=== PATIENT | male | born 1960 | race African-American/Black ===

== ENCOUNTER 2018-10-20 21:18 | Inpatient (IN) | payer MEDICAID, SELFPAY ==
[~2018-10-20] VITALS: Ht 172.7 cm; Wt 123.8 kg
[2018-10-20] MEDS ORDERED: LISINOPRIL20 MG ORAL (21:22)
--- NOTE | 2018-10-20 21:22 | Emergency Room Report ---
History of Present Illness General Chief Complaint: Chest Pain Source: Patient Present Illness HPI Patient is a 58-year-old male brought in by EMS after increased chest discomfort. Patient had reportedly had similar episodes in the past. Patient reportedly had been off of his hypertension medications. Reports of increased right-sided chest pain. Pain is worse with movements.Patient was given aspirin by EMS.Patient reports having symptoms for 4 Days. He denies taking his blood pressure medications. Patient was noted to be markedly hypertensive by EMS. He was not given nitroglycerin due to reported allergy.Patient denies any change in his leg swelling.Patient reports having prior history of cardiac disease and has had prior stent placement. He denies taking anticoagulants other than aspirin. Allergies: Coded Allergies: NITROGLYCERIN (Verified Allergy, Unknown, 10/20/18) Patient History Past Medical History: see triage record Past Surgical History: PTCA Reviewed Nursing Documentation: PMH: Agreed; PSxH: Agreed Nursing Documentation-PMH Hx Cardiac Problems: Yes - STENT Hx Hypertension: Yes Hx Cerebrovascular Accident: Yes - STROKE Review of Systems All Other Systems: negative except mentioned in HPI Physical Exam Vital Signs Date Time Temp Pulse Resp B/P (MAP) Pulse Ox O2 Delivery O2 Flow Rate FiO2 10/20/18 21:13 98.1 81 16 261/153 98 Sp02 EP Interpretation: reviewed, normal General Appearance: normal inspection, well appearing, no apparent distress, alert, obese Head: atraumatic ENT: normal ENT inspection, hearing grossly normal, normal voice Neck: normal inspection, full range of motion, supple, no bony tend Respiratory: normal inspection, lungs clear, normal breath sounds, no respiratory distress, no retraction, no wheezing Cardiovascular #1: regular rate, rhythm, edema Gastrointestinal: normal inspection, normal bowel sounds, non tender, soft, no guarding, no hernia Genitourinary: no CVA tenderness Musculoskeletal: normal inspection, back normal, normal range of motion Neurologic: normal inspection, alert, responsive, speech normal Psychiatric: normal inspection, judgement/insight normal, mood/affect normal Skin: normal inspection, normal color, no rash Medical Decision Making Diagnostic Impression: Primary Impression: Chest pain Additional Impression: Uncontrolled hypertension ER Course Patient presented for chest pain. Differential diagnosis included but was not limited to acute coronary syndrome, pulmonary embolism, pneumonia, aortic dissection, shingles, pneumothorax, aortic dissection, esophageal rupture, pericarditis. Because of complexity of patient's case laboratory testing and imaging studies were ordered.Patient was noted to be markedly hypertensive. Patient was noted to have some difficulty breathing when given nitro in the past. Patient was given IV hydralazine as well as clonidine p.o.patient was noted to have some bradycardia. Per patient's report he was noted to have bradycardia since prior cardiac surgery. Patient was noted to have significant past medical history for cardiac stent placement. Patient was discussed with [facility] however patient was noted to be bradycardic at this time and I do not feel the patient is stable for transfer. Patient was noted to be pain- free at the time. Dr. Rogel was contacted for inpatient management due to need for inpatient monitoring and treatment due to panel physician. Labs Test 10/20/18 21:30 White Blood Count 8.2 K/UL (4.8-10.8) Red Blood Count 5.00 M/UL (4.70-6.10) Hemoglobin 15.7 G/DL (14.2-18.0) Hematocrit 47.7 % (42.0-52.0) Mean Corpuscular Volume 95 FL (80-99) Mean Corpuscular Hemoglobin 31.5 PG (27.0-31.0) Mean Corpuscular Hemoglobin Concent 33.0 G/DL (32.0-36.0) Red Cell Distribution Width 13.6 % (11.6-14.8) Platelet Count 228 K/UL (150-450) Mean Platelet Volume 8.7 FL (6.5-10.1) Neutrophils (%) (Auto) 51.0 % (45.0-75.0) Lymphocytes (%) (Auto) 38.9 % (20.0-45.0) Monocytes (%) (Auto) 8.3 % (1.0-10.0) Eosinophils (%) (Auto) 0.4 % (0.0-3.0) Basophils (%) (Auto) 1.4 % (0.0-2.0) Prothrombin Time 12.1 SEC (9.30-11.50) Prothromb Time International Ratio 1.2 (0.9-1.1) Activated Partial Thromboplast Time 28 SEC (23-33) D-Dimer 0.31 mg/L FEU (0.00-0.49) Troponin I 0.045 ng/mL (0.000-0.056) Urine Opiates Screen Negative (NEGATIVE) Urine Barbiturates Screen Negative (NEGATIVE) Phencyclidine (PCP) Screen Negative (NEGATIVE) Urine Amphetamines Screen Negative (NEGATIVE) Urine Benzodiazepines Screen Negative (NEGATIVE) Urine Cocaine Screen Negative (NEGATIVE) Urine Marijuana (THC) Screen Positive (NEGATIVE) EKG Diagnostic Results Rate: normal Rhythm: NSR ST Segments: other - Right bundle branch block. QTc was normal. Left anterior fascicular block Last Vital Signs Date Time Temp Pulse Resp B/P (MAP) Pulse Ox O2 Delivery O2 Flow Rate FiO2 10/20/18 21:13 98.1 81 16 261/153 98 Status: unchanged Disposition: ADMITTED INPATIENT Condition: Serious Tejas Kee MD Oct 20, 2018 21:22
[2018-10-20 21:27] VITALS: BP 143/81
[2018-10-20] MEDS ORDERED: cloNIDine 0.2mg Tab ORAL ONE (21:30)
[2018-10-20] MEDS ORDERED: Morphine Sulfate 2mg/ml Inj IVP ONE (22:30)
[2018-10-20 22:43] LABS: BASOPHILS % (AUTO) 1.4 % (0.0-2.0); EOSINOPHILS % (AUTO) 0.4 % (0.0-3.0); HEMATOCRIT 47.7 % (42.0-52.0); HEMOGLOBIN 15.7 G/DL (14.2-18.0); LYMPHOCYTES % (AUTO) 38.9 % (20.0-45.0); MEAN CORPUSCULAR VOLUME 95 FL (80-99); MONOCYTES % (AUTO) 8.3 % (1.0-10.0); PLATELET COUNT 228 K/UL (150-450); RED CELL DISTRIBUTION WIDTH 13.6 % (11.6-14.8); WHITE BLOOD COUNT 8.2 K/UL (4.8-10.8)
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
[2018-10-20 22:47] LABS: INR 1.2 (0.9-1.1)
[2018-10-20] MEDS ORDERED: Atropine Sulfate 0.4mg/ml inj IVP ONE (23:15)
--- NOTE | 2018-10-20 23:21 | NUR ---
ED Nurse Note: Morphine not administered due to patient's heart rate being too low, Dr. Kee aware
--- NOTE | 2018-10-21 02:10 | NUR ---
ED Nurse Note: CT SENT DOWN FOR CT.
[2018-10-21 03:10] VITALS: BP 129/79
--- NOTE | 2018-10-21 03:10 | NUR ---
NURSE NOTES: Received pt. from Sophia RN- pt. bought up from ER, pt. is alert and oriented x's 4- able to make needs known, no signs or symptoms of acute cardia or respiratory distress noted, Cardiac monitoring placed, Vital signs taken, full body assessment done- skin intact, pt. teaching done and pt. oriented to room, bed alarm on side rails up x's3 and safety brakes engaged, call light within easy reach, urinal at bedside and within easy reach, pt. appear to be sating well on room air at 97%- no respiratory distress noted, left hand 20G- IV intact and patent, comfort measures provided, safety measures continued, will continue with plan of care.
--- NOTE | 2018-10-21 03:10 | NUR ---
TRANSFER TO FLOOR: Patient transferred to [facility]/ 236 as ordered . Report given to Moises/HAVEN. Belongings sent with Pt and rechecked with RN.
[2018-10-21 03:12] LABS: ALANINE AMINOTRANSFERASE 26 U/L (12-78); ALBUMIN 3.2 G/DL (3.4-5.0); ALBUMIN/GLOBULIN RATIO 0.8 (1.0-2.7); ALKALINE PHOSPHATASE 65 U/L (46-116); ANION GAP 7 mmol/L (5-15); ASPARTATE AMINO TRANSFERASE 38 U/L (15-37); BILIRUBIN,TOTAL 0.5 MG/DL (0.2-1.0); BLOOD UREA NITROGEN 16 mg/dL (7-18); CALCIUM 9.3 MG/DL (8.5-10.1); CARBON DIOXIDE 25 MMOL/L (21-32); CHLORIDE 107 MMOL/L (98-107); CKMB 2.2 NG/ML (0.0-3.6); CREATINE KINASE 176 U/L (26-308); CREATININE 0.9 MG/DL (0.55-1.30); SODIUM 138 MMOL/L (136-145)
[2018-10-21 04:00] VITALS: BP 129/79
[2018-10-21] MEDS ORDERED: Morphine Sulfate 2mg/ml Inj IVP SCH (04:00)
--- NOTE | 2018-10-21 06:24 | NUR ---
NURSE NOTES: left msg for DR. Rogel, regarding bridge orders received by him from ER and calling to see if any further orders- waiting for call back from doctor.
--- NOTE | 2018-10-21 07:06 | NUR ---
HAND-OFF: Report given to Marino Dodd, pt. remains stable and no signs of distress noted. Aware to follow up on orders. Addendum: 10/21/18 at 0724 by IDALMIS WHITE RN RN correction to msg above report given to Olivia DODD not Marino DODD.
[2018-10-21] MEDS ORDERED: Morphine Sulfate 4mg/ml Inj (IV/IM USE ONLY) IVP PRN (07:15)
--- NOTE | 2018-10-21 07:19 | NUR ---
NURSE NOTES: orders called in by DR. Rogel- CBC, CMP for 10/23, hGA1C, lipid panel and TSH for am now, 2D echo for chest pain now, Prevacid 30mg QDay oral, Heparin 5000 Sub Q BID, Morphine and Zofran as ordered before but to order Q6hrs prn as indicated- orders carried out- and read back to doctor.
--- NOTE | 2018-10-21 07:20 | NUR ---
NURSE NOTES: RECEIVED PATIENT FROM Lucy WHITE RN. PATIENT IS AWAKE, ALERT AND ORIENTED. ABLE TO MAKE NEEDS KNOWN. 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 ON ROOM AIR. NO CARDIO OR RESPI DISTRESS OF THE MOMENT. ABLE TO USE URINAL. IV ON L HAND G20. CALL LIGHT WITHIN REACH. BED AT LOWEST POSITION. SIDE RAILS UP. WILL CONTINUE TO MONITOR.
[2018-10-21 08:00] VITALS: BP 128/63
[2018-10-21 08:13] LABS: ANION GAP 7 mmol/L (5-15); BLOOD UREA NITROGEN 15 mg/dL (7-18); CALCIUM 9.5 MG/DL (8.5-10.1); CARBON DIOXIDE 26 MMOL/L (21-32); CHLORIDE 108 MMOL/L (98-107); CREATININE 0.9 MG/DL (0.55-1.30); SODIUM 141 MMOL/L (136-145)
[2018-10-21 08:52] LABS: CHOLESTEROL 238 MG/DL (< 200); HDL CHOLESTEROL 55 MG/DL (40-60); TRIGLYCERIDES 172 MG/DL (30-150)
[2018-10-21] MEDS: Heparin 5000 units/ml inj SUBQ SCH ×2 (09:29→22:14)
--- NOTE | 2018-10-21 09:29 | NUR ---
*-* INSURANCE CLINICALS HAVE BEEN FAXED TO: [employer] P:[phone] F:[phone]
--- NOTE | 2018-10-21 10:00 | NUR ---
NURSE NOTES: INFORMED DR WHITNEY RE HR OF PATIENT AND CONSULTED DR MICHELLE. NO NEW ORDER. PATIENT IS ASYMPTOMATIC. VSS. NO SIGNS OF DISTRESS. WILL CONTINUE TO MONITOR.
--- NOTE | 2018-10-21 11:40 | NUR ---
NURSE NOTES: WHEELED PATIENT TO GI LAB. NO SIGNS OF DISTRESS. WILL CONTINUE OT MONITOR. Addendum: 10/21/18 at 1234 by URIEL VALADEZ RN NURSE NOTES: WRONG ENTRY
--- NOTE | 2018-10-21 11:49 | Diagnostic Imaging Report ---
Indication: Chest pain Comparison: None A single view chest radiograph was obtained. Findings: Cardiomediastinal appearance is prominent but within normal limits for age and especially accounting for low lung volumes. The lungs are clear. Pulmonary vascularity is appropriate. The diaphragmatic contour is smooth and costophrenic angles are sharp. No pleural effusions are identified. The bones are unremarkable. Impression: No acute findings
--- NOTE | 2018-10-21 13:50 | History & Physical ---
History and Physical History & Physicial seen and examined. Full Dictation completed Angelique Rogel MD Oct 21, 2018 13:50
--- NOTE | 2018-10-21 13:51 | General Progress Note ---
Assessment/Plan Assessment/Plan seen and examined. Plan: Hypertensive Emergency Pending assessment by Cardiology and completion of Echo Subjective Allergies: Coded Allergies: NITROGLYCERIN (Verified Allergy, Unknown, 10/20/18) Objective Last 24 Hour Vital Signs Date Time Temp Pulse Resp B/P (MAP) Pulse Ox O2 Delivery O2 Flow Rate FiO2 10/21/18 12:00 Room Air 10/21/18 11:49 54 10/21/18 10:03 36 10/21/18 08:00 55 10/21/18 08:00 97.7 46 20 128/63 (84) 96 10/21/18 08:00 Room Air 10/21/18 04:00 Room Air 10/21/18 04:00 45 10/21/18 04:00 97.3 46 20 129/79 (96) 98 10/21/18 03:10 97.3 48 20 126/75 98 Room Air 10/21/18 03:10 Room Air 10/21/18 03:10 97.3 46 20 129/79 (96) 98 10/20/18 21:37 227/121 10/20/18 21:36 227/121 10/20/18 21:27 98.1 74 19 143/81 98 Room Air 10/20/18 21:27 71 19 Room Air 10/20/18 21:13 98.1 81 16 261/153 98 Intake and Output 10/20/18 10/21/18 18:59 06:59 Intake Total 130 ml Balance 130 ml Intake Oral 130 ml # Voids 1 Laboratory Tests 10/20/18 21:30: White Blood Count 8.2, Red Blood Count 5.00, Hemoglobin 15.7, Hematocrit 47.7, Mean Corpuscular Volume 95, Mean Corpuscular Hemoglobin 31.5H, Mean Corpuscular Hemoglobin Concent 33.0, Red Cell Distribution Width 13.6, Platelet Count 228, Mean Platelet Volume 8.7, Neutrophils (%) (Auto) 51.0, Lymphocytes (%) (Auto) 38.9, Monocytes (%) (Auto) 8.3, Eosinophils (%) (Auto) 0.4, Basophils (%) (Auto ) 1.4, Prothrombin Time 12.1H, Prothromb Time International Ratio 1.2H, Activated Partial Thromboplast Time 28, D-Dimer 0.31, Troponin I 0.045, Urine Opiates Screen Negative, Urine Barbiturates Screen Negative, Phencyclidine (PCP ) Screen Negative, Urine Amphetamines Screen Negative, Urine Benzodiazepines Screen Negative, Urine Cocaine Screen Negative, Urine Marijuana (THC) Screen PositiveH 10/21/18 02:37: Sodium Level 138, Potassium Level 6.0*H, Chloride Level 107, Carbon Dioxide Level 25, Anion Gap 7, Blood Urea Nitrogen 16, Creatinine 0.9, Estimat Glomerular Filtration Rate > 60, Glucose Level 95, Calcium Level 9.3, Total Bilirubin 0.5, Aspartate Amino Transf (AST/SGOT) 38H, Alanine Aminotransferase ( ALT/SGPT) 26, Alkaline Phosphatase 65, Total Creatine Kinase 176, Creatine Kinase MB 2.2, Creatine Kinase MB Relative Index 1.2, Total Protein 7.0, Albumin 3.2L, Globulin 3.8, Albumin/Globulin Ratio 0.8L 10/21/18 07:47: Sodium Level 141, Potassium Level 4.0, Chloride Level 108H, Carbon Dioxide Level 26, Anion Gap 7, Blood Urea Nitrogen 15, Creatinine 0.9, Estimat Glomerular Filtration Rate > 60, Glucose Level 128H, Calcium Level 9.5, Hemoglobin A1c 6.0, Triglycerides Level 172H, Cholesterol Level 238H, LDL Cholesterol 156H, HDL Cholesterol 55, Cholesterol/HDL Ratio 4.3, Thyroid Stimulating Hormone (TSH) 3.372 Height (Feet): 5 Height (Inches): 8.00 Weight (Pounds): 273 Angelique Rogel MD Oct 21, 2018 13:51
--- NOTE | 2018-10-21 17:33 | NUR ---
CASE MANAGEMENT: REVIEW 58/M BIBA FROM HOME CC: CHEST PAIN SI: ACS T 97.3 HR 46 RR 20 BP 261/153 SAT 98% ROOM AIR K 6.0 IS: HYDRALAZINE IV X1 CLONIDINE PO X1 MORPHINE IV X1 ATROPINE IV X1 INTERQUAL CRITERIA MET: PATIENT ADMITTED TO STEP DOWN UNIT 10/21/2018 DCP: PATIENT IS FROM HOME
--- NOTE | 2018-10-21 18:16 | NUR ---
NURSE NOTES: PATIENT KEPT CLEAN AND DRY. NO SIGNS OF DISTRESS. WILL CONTINUE TO MONITOR.
--- NOTE | 2018-10-21 19:37 | NUR ---
HAND-OFF: Report given to Rabia Hendricks RN.
--- NOTE | 2018-10-21 19:40 | NUR ---
NURSE NOTES: Received patient from URIEL OROURKE.Awake alert. Resting in bed with no acute distress noted. SB with HR of 55 on monitor. vs stable. afebrile. Denies chest pain at this time. patient is ambulatory. using urinal.call light in reach. bed in locked and lowest position for safety.skin intact. will resume plan of care.
[2018-10-21 20:00] VITALS: BP 139/73
--- NOTE | 2018-10-21 20:12 | Cardiology Progress Note ---
Assessment/Plan Assessment/Plan The patient is seen and examined, full consult note will be dictated. Objective Last 24 Hour Vital Signs Date Time Temp Pulse Resp B/P (MAP) Pulse Ox O2 Delivery O2 Flow Rate FiO2 10/21/18 16:00 Room Air 10/21/18 16:00 44 10/21/18 12:00 Room Air 10/21/18 11:49 54 10/21/18 10:03 36 10/21/18 08:00 55 10/21/18 08:00 97.7 46 20 128/63 (84) 96 10/21/18 08:00 Room Air 10/21/18 04:00 Room Air 10/21/18 04:00 45 10/21/18 04:00 97.3 46 20 129/79 (96) 98 10/21/18 03:10 97.3 48 20 126/75 98 Room Air 10/21/18 03:10 Room Air 10/21/18 03:10 97.3 46 20 129/79 (96) 98 10/20/18 21:37 227/121 10/20/18 21:36 227/121 10/20/18 21:27 98.1 74 19 143/81 98 Room Air 10/20/18 21:27 71 19 Room Air 10/20/18 21:13 98.1 81 16 261/153 98 Intake and Output 10/20/18 10/21/18 19:00 07:00 Intake Total 130 ml Balance 130 ml Intake Oral 130 ml # Voids 1 Laboratory Tests Test 10/20/18 21:30 10/21/18 02:37 10/21/18 07:47 White Blood Count 8.2 K/UL (4.8-10.8) Red Blood Count 5.00 M/UL (4.70-6.10) Hemoglobin 15.7 G/DL (14.2-18.0) Hematocrit 47.7 % (42.0-52.0) Mean Corpuscular Volume 95 FL (80-99) Mean Corpuscular Hemoglobin 31.5 PG (27.0-31.0) H Mean Corpuscular Hemoglobin Concent 33.0 G/DL (32.0-36.0) Red Cell Distribution Width 13.6 % (11.6-14.8) Platelet Count 228 K/UL (150-450) Mean Platelet Volume 8.7 FL (6.5-10.1) Neutrophils (%) (Auto) 51.0 % (45.0-75.0) Lymphocytes (%) (Auto) 38.9 % (20.0-45.0) Monocytes (%) (Auto) 8.3 % (1.0-10.0) Eosinophils (%) (Auto) 0.4 % (0.0-3.0) Basophils (%) (Auto) 1.4 % (0.0-2.0) Prothrombin Time 12.1 SEC (9.30-11.50) H Prothromb Time International Ratio 1.2 (0.9-1.1) H Activated Partial Thromboplast Time 28 SEC (23-33) D-Dimer 0.31 mg/L FEU (0.00-0.49) Troponin I 0.045 ng/mL (0.000-0.056) Urine Opiates Screen Negative (NEGATIVE) Urine Barbiturates Screen Negative (NEGATIVE) Phencyclidine (PCP) Screen Negative (NEGATIVE) Urine Amphetamines Screen Negative (NEGATIVE) Urine Benzodiazepines Screen Negative (NEGATIVE) Urine Cocaine Screen Negative (NEGATIVE) Urine Marijuana (THC) Screen Positive (NEGATIVE) H Sodium Level 138 MMOL/L (136-145) 141 MMOL/L (136-145) Potassium Level 6.0 MMOL/L (3.5-5.1) *H 4.0 MMOL/L (3.5-5.1) Chloride Level 107 MMOL/L (98-107) 108 MMOL/L (98-107) H Carbon Dioxide Level 25 MMOL/L (21-32) 26 MMOL/L (21-32) Anion Gap 7 mmol/L (5-15) 7 mmol/L (5-15) Blood Urea Nitrogen 16 mg/dL (7-18) 15 mg/dL (7-18) Creatinine 0.9 MG/DL (0.55-1.30) 0.9 MG/DL (0.55-1.30) Estimat Glomerular Filtration Rate > 60 mL/min (>60) > 60 mL/min (>60) Glucose Level 95 MG/DL (74-106) 128 MG/DL (74-106) H Calcium Level 9.3 MG/DL (8.5-10.1) 9.5 MG/DL (8.5-10.1) Total Bilirubin 0.5 MG/DL (0.2-1.0) Aspartate Amino Transf (AST/SGOT) 38 U/L (15-37) H Alanine Aminotransferase (ALT/SGPT) 26 U/L (12-78) Alkaline Phosphatase 65 U/L (46-116) Total Creatine Kinase 176 U/L (26-308) Creatine Kinase MB 2.2 NG/ML (0.0-3.6) Creatine Kinase MB Relative Index 1.2 Total Protein 7.0 G/DL (6.4-8.2) Albumin 3.2 G/DL (3.4-5.0) L Globulin 3.8 g/dL Albumin/Globulin Ratio 0.8 (1.0-2.7) L Hemoglobin A1c 6.0 % (4.3-6.0) Triglycerides Level 172 MG/DL (30-150) H Cholesterol Level 238 MG/DL (< 200) H LDL Cholesterol 156 mg/dL (<100) H HDL Cholesterol 55 MG/DL (40-60) Cholesterol/HDL Ratio 4.3 (3.3-4.4) Thyroid Stimulating Hormone (TSH) 3.372 uiU/mL (0.358-3.740) Modesto Pedro MD Oct 21, 2018 20:12
--- NOTE | 2018-10-21 20:20 | NUR ---
NURSE NOTES: Dr. MICHELLE in the room and examined patient.informed SB with HR of 44-55. obtained new order that lisinopril 10mg po daily. will carry out order.
--- NOTE | 2018-10-21 21:45 | History and Physical Report ---
DATE OF ADMISSION: 10/21/2018 SOURCE OF INFORMATION: Patient and EMR. HISTORY OF PRESENT ILLNESS: The patient is a 58-year-old male with a history of coronary artery disease reportedly treated by cardiac cath in [facility] a couple of years ago. The patient reported chest pain and heaviness on the anterior aspect of the chest wall associated with shortness of breath. The patient denies any dizziness. Denies any cough. Denies any lightheadedness. No nausea. No vomitus. No diarrhea. No constipation. ALLERGIES: To nitroglycerin. FAMILY HISTORY: Reviewed. Noncontributory. PAST SURGICAL HISTORY: Cardiac catheterization reportedly couple of years ago in [facility]. PAST MEDICAL HISTORY: Including but not limited to, hypertension, coronary artery disease (reported by the patient). CURRENT OUTPATIENT MEDICATIONS: Reportedly lisinopril. PHYSICAL EXAMINATION: VITAL SIGNS: Blood pressure 260/150, temperature 98.2, pulse ox 98% on room air, and respiratory rate 18. HEAD AND NECK: Atraumatic and normocephalic. CHEST: Clear to auscultation. HEART: S1, S2. Regular rate and rhythm. ABDOMEN: Soft. No organomegaly. MUSCULOSKELETAL: No gross motor or sensory deficits. NEUROLOGIC: Awake, alert, and oriented x3. LABORATORY AND DIAGNOSTIC DATA: Labs dated 10/20/2018 shows WBC 8.2, hemoglobin, platelet count 122,000. Sodium 138, potassium 6, BUN 16, creatinine 0.9. AST 38. Triglycerides of 172. TSH of 3.3. Urinalysis is positive for marijuana. ASSESSMENT AND PLAN: 1. Acute coronary syndrome. 2. Coronary artery disease - reported by the patient. 3. Hyperkalemia. 4. Abnormal liver function tests. 5. Hyperlipidemia. 6. Substance abuse, positive for marijuana. Plan of care, pending 2D echo. Cardiology has been consulted. I reviewed with the tele unit. Angelique Rogel M.D. DR: MAG JOB#: [id number] CC: ANDRADE
[2018-10-22] VITALS: BP 148/82
--- NOTE | 2018-10-22 01:40 | NUR ---
NURSE NOTES: Report received from HAVEN Curry. Pt shows no signs of distress. VSS. Respirations even and unlabored on room air. Pt is in stable condition; will continue to monitor.
--- NOTE | 2018-10-22 01:50 | NUR ---
HAND-OFF: Report given to HAVEN MARTÍNEZ using SBAR.Patient asleep in bed with no sign of acute distress noted.
[2018-10-22 04:00] VITALS: BP 175/81
--- NOTE | 2018-10-22 04:35 | NUR ---
NURSE NOTES: Pt has a systolic blood pressure in the 180s with no PRN blood pressure medication. Left message with Dr. Pedro; awaiting response.
--- NOTE | 2018-10-22 06:44 | NUR ---
HAND-OFF: Patient transferred safely to . Report given to HAVEN Berry. Pt is in stable condition; plan of care endorsed.
--- NOTE | 2018-10-22 06:46 | NUR ---
NURSE NOTES: patient received. patient in no acute distress at this time. patient complains of no pain at this time. patient A&Ox4. complains of no pain. bed in lowest position and locked. will continue to monitor.
[2018-10-22] MEDS ORDERED: HydrALAZINE 50mg tab ORAL PRN ×2 (07:00→08:00)
--- NOTE | 2018-10-22 07:07 | NUR ---
HAND-OFF: Report given to HAVEN chin.
--- NOTE | 2018-10-22 07:18 | NUR ---
NURSE NOTES: Received bedside report from Kristi OROURKE. Pt. in bed, a/o x 4. No sign of distress. Denies pain at present. IV site at left hand #20g. in placed SL. Bed in low position, locked. Call light within reach. Will cont. to monitor.
[2018-10-22 07:26] LABS: BASOPHILS % (AUTO) 0.4 % (0.0-2.0); EOSINOPHILS % (AUTO) 0.5 % (0.0-3.0); HEMATOCRIT 43.9 % (42.0-52.0); HEMOGLOBIN 14.6 G/DL (14.2-18.0); LYMPHOCYTES % (AUTO) 45.2 % (20.0-45.0); MEAN CORPUSCULAR VOLUME 94 FL (80-99); MONOCYTES % (AUTO) 7.5 % (1.0-10.0); NEUTROPHILS % (AUTO) 46.4 % (45.0-75.0); PLATELET COUNT 227 K/UL (150-450); RED BLOOD COUNT 4.67 M/UL (4.70-6.10); RED CELL DISTRIBUTION WIDTH 13.4 % (11.6-14.8); WHITE BLOOD COUNT 6.2 K/UL (4.8-10.8)
[2018-10-22 07:57] LABS: ALANINE AMINOTRANSFERASE 26 U/L (12-78); ALBUMIN 3.2 G/DL (3.4-5.0); ALBUMIN/GLOBULIN RATIO 0.9 (1.0-2.7); ALKALINE PHOSPHATASE 65 U/L (46-116); ANION GAP 9 mmol/L (5-15); ASPARTATE AMINO TRANSFERASE 21 U/L (15-37); BILIRUBIN,TOTAL 0.3 MG/DL (0.2-1.0); BLOOD UREA NITROGEN 14 mg/dL (7-18); CALCIUM 9.7 MG/DL (8.5-10.1); CARBON DIOXIDE 25 MMOL/L (21-32); CHLORIDE 107 MMOL/L (98-107); CREATININE 0.9 MG/DL (0.55-1.30); POTASSIUM 4.2 MMOL/L (3.5-5.1); SODIUM 141 MMOL/L (136-145)
[2018-10-22 08:00] VITALS: BP 167/93
[2018-10-22] MEDS ORDERED: Morphine Sulfate 4mg/ml Inj (IV/IM USE ONLY) IVP PRN (08:00)
--- NOTE | 2018-10-22 08:27 | NUR ---
NURSE NOTES: Called Dr. Pedro and left a message regarding troponin result 0.085 awaiting for response.
[2018-10-22] MEDS ORDERED: Heparin 5000 units/ml inj SUBQ SCH (09:00)
[2018-10-22] MEDS ORDERED: Lisinopril 10mg tab ORAL SCH ×2 (09:00)
[2018-10-22 12:00] VITALS: BP 179/94
[2018-10-22] MEDS ORDERED: Lexiscan 0.4mg/5ml syringe IV PRN (14:00)
--- NOTE | 2018-10-22 14:12 | NUR ---
CASE MANAGEMENT:REVIEW 10/22/18 SI: ACS. CAD. HYPERKALEMIA 98.4 39 22 179/94 97% ON RA TROPONIN(+) 0.085 IS: IV LEXISCAN X1 LISINOPRIL PO QD PROTONIX PO QD : TELEMETRY PLAN: STRESS TEST FOR TODAY SOCIAL SERVICE CONSULT
--- NOTE | 2018-10-22 14:55 | NUR ---
Social Work This Sw received a consult due to patient is homeless. Patient denied homelessness, planning to discharge back to [address] [facility], will need cab voucher to home. No other needs or concerns identified at this time.
[2018-10-22 16:00] VITALS: BP 142/74
--- NOTE | 2018-10-22 16:01 | Cardiology Report ---
APPROVED REPORT EKG Measurement Heart [id number] Marked sinus bradycardia with sinus arrhythmia Left axis deviation Left ventricular hypertrophy with QRS widening Abnormal ECG
--- NOTE | 2018-10-22 16:19 | Diagnostic Imaging Report ---
Indication: chest pain Technique: The study was conducted under the supervision of a specialty development consultant. Exercise on a treadmill utilizing (Zion protocol) followed by intravenous administration of 31.5 mCi of technetium 99m Myoview was performed. Three plane SPECT imaging of the heart was then performed. A resting study was performed as part of the one-day protocol with 11 mCi of technetium 99m myoview injected intravenously at that time. Three plane SPECT imaging of the heart was obtained. Comparison: None Clinical data: Patient was unable to achieve 85% maximum predicted heart rate with a maximum heart rate of 96 bpm. Resting heart rate was 51 bpm. Resting BP 153/81. Peak exercise BP 185/81. Patient exercised for 4 minutes 12 seconds and experienced no chest pain. Exercise stopped due to fatigue. 1. Clinical response: Non ischemic 2. Electrocardiographic response: Nondiagnostic Findings: The myocardial perfusion scan demonstrates LVEF estimated at 63%. No definite reversible perfusion defects are identified. No definite fixed defects identified. IMPRESSION: Negative myocardial perfusion scan. However degree of exercise and stress achieved was limited on this examination. The results are therefore limited.
--- NOTE | 2018-10-22 16:27 | General Progress Note ---
Assessment/Plan Assessment/Plan S: I am ok O: appears comfortable, PHYSICAL EXAMINATION:HEAD AND NECK: Atraumatic and normocephalic. CHEST: Clear to auscultation.HEART: S1, S2. Regular rate and rhythm. ABDOMEN: Soft. No organomegaly. MUSCULOSKELETAL: No gross motor or sensory deficits. NEUROLOGIC: Awake, alert, and oriented x3. Meds: including Atorvastatin, reviewed and reconciled ASSESSMENT AND PLAN: 1. Acute coronary syndrome vs Atypical CP 2. Coronary artery disease - reported by the patient. 3. Hyperkalemia. 4. Sinus bradycardia 4. Abnormal liver function tests. 5. Hyperlipidemia. 6. Substance abuse, positive for marijuana. Plan: Will optimize medication Sub-Optimal cardiac stress test Subjective Allergies: Coded Allergies: NITROGLYCERIN (Verified Allergy, Unknown, 10/20/18) Objective Last 24 Hour Vital Signs Date Time Temp Pulse Resp B/P (MAP) Pulse Ox O2 Delivery O2 Flow Rate FiO2 10/22/18 16:00 97.3 76 21 142/74 (96) 97 10/22/18 12:00 98.4 39 22 179/94 (122) 97 10/22/18 09:11 167/93 10/22/18 08:00 Room Air 10/22/18 08:00 98.2 41 21 167/93 (117) 99 10/22/18 07:59 43 10/22/18 04:00 42 10/22/18 04:00 98.0 42 20 175/81 (112) 98 10/22/18 04:00 Room Air 10/22/18 00:00 98.2 47 20 148/82 (104) 98 10/22/18 00:00 Room Air 10/22/18 00:00 44 10/21/18 20:00 55 10/21/18 20:00 97.5 47 20 139/73 (95) 98 10/21/18 20:00 Room Air Intake and Output 10/21/18 10/22/18 18:59 06:59 Intake Total 650 ml 400 ml Balance 650 ml 400 ml Intake Oral 650 ml 400 ml # Voids 3 3 Laboratory Tests 10/22/18 03:55: White Blood Count 6.2, Red Blood Count 4.67L, Hemoglobin 14.6, Hematocrit 43.9, Mean Corpuscular Volume 94, Mean Corpuscular Hemoglobin 31.2H, Mean Corpuscular Hemoglobin Concent 33.3, Red Cell Distribution Width 13.4, Platelet Count 227, Mean Platelet Volume 9.0, Neutrophils (%) (Auto) 46.4, Lymphocytes (%) (Auto) 45.2H, Monocytes (%) (Auto) 7.5, Eosinophils (%) (Auto) 0.5, Basophils (%) (Auto ) 0.4, Sodium Level 141, Potassium Level 4.2, Chloride Level 107, Carbon Dioxide Level 25, Anion Gap 9, Blood Urea Nitrogen 14, Creatinine 0.9, Estimat Glomerular Filtration Rate > 60, Glucose Level 87, Calcium Level 9.7, Total Bilirubin 0.3, Aspartate Amino Transf (AST/SGOT) 21, Alanine Aminotransferase ( ALT/SGPT) 26, Alkaline Phosphatase 65, Troponin I 0.085H, Total Protein 6.8, Albumin 3.2L, Globulin 3.6, Albumin/Globulin Ratio 0.9L Height (Feet): 5 Height (Inches): 8.00 Weight (Pounds): 273 Angelique Rogel MD Oct 22, 2018 16:27
--- NOTE | 2018-10-22 18:33 | NUR ---
NURSE NOTES: Called Dr. Rogel and spoke to him regarding pt. wanting to be d/c home since he is done with his stress test. And told RN if cleared by Dr. Pedro. Called Dr. Pedro and left a message. Awaiting for response.
--- NOTE | 2018-10-22 19:16 | Cardiology Progress Note ---
Assessment/Plan Assessment/Plan 1. Atypical chest pain, nuclear stress test is non-ischemic. 2. CAD, s/p PCI, start ASA 81 daily, increase atorvastatin to 40mg po daily, goal of LDL <70. 3. Dyslipidemia 4. Hx of CVA 5. Asymptomatic sinus bradycardia, ? athlete's heart in view of LVH. Subjective Subjective Sinus bradycardia at 47. s/p nuclear stress test. Objective Last 24 Hour Vital Signs Date Time Temp Pulse Resp B/P (MAP) Pulse Ox O2 Delivery O2 Flow Rate FiO2 10/22/18 17:45 46 10/22/18 16:00 97.3 76 21 142/74 (96) 97 10/22/18 12:00 98.4 39 22 179/94 (122) 97 10/22/18 11:49 38 10/22/18 09:11 167/93 10/22/18 08:00 Room Air 10/22/18 08:00 98.2 41 21 167/93 (117) 99 10/22/18 07:59 43 10/22/18 04:00 42 10/22/18 04:00 98.0 42 20 175/81 (112) 98 10/22/18 04:00 Room Air 10/22/18 00:00 98.2 47 20 148/82 (104) 98 10/22/18 00:00 Room Air 10/22/18 00:00 44 10/21/18 20:00 55 10/21/18 20:00 97.5 47 20 139/73 (95) 98 10/21/18 20:00 Room Air Intake and Output 10/21/18 10/22/18 19:00 07:00 Intake Total 650 ml 400 ml Balance 650 ml 400 ml Intake Oral 650 ml 400 ml # Voids 3 3 2D Echo: LVEF 55%, Mod LVH, Mild LAE, RVSP 17 mmHg Laboratory Tests Test 10/22/18 03:55 White Blood Count 6.2 K/UL (4.8-10.8) Red Blood Count 4.67 M/UL (4.70-6.10) L Hemoglobin 14.6 G/DL (14.2-18.0) Hematocrit 43.9 % (42.0-52.0) Mean Corpuscular Volume 94 FL (80-99) Mean Corpuscular Hemoglobin 31.2 PG (27.0-31.0) H Mean Corpuscular Hemoglobin Concent 33.3 G/DL (32.0-36.0) Red Cell Distribution Width 13.4 % (11.6-14.8) Platelet Count 227 K/UL (150-450) Mean Platelet Volume 9.0 FL (6.5-10.1) Neutrophils (%) (Auto) 46.4 % (45.0-75.0) Lymphocytes (%) (Auto) 45.2 % (20.0-45.0) H Monocytes (%) (Auto) 7.5 % (1.0-10.0) Eosinophils (%) (Auto) 0.5 % (0.0-3.0) Basophils (%) (Auto) 0.4 % (0.0-2.0) Sodium Level 141 MMOL/L (136-145) Potassium Level 4.2 MMOL/L (3.5-5.1) Chloride Level 107 MMOL/L (98-107) Carbon Dioxide Level 25 MMOL/L (21-32) Anion Gap 9 mmol/L (5-15) Blood Urea Nitrogen 14 mg/dL (7-18) Creatinine 0.9 MG/DL (0.55-1.30) Estimat Glomerular Filtration Rate > 60 mL/min (>60) Glucose Level 87 MG/DL (74-106) Calcium Level 9.7 MG/DL (8.5-10.1) Total Bilirubin 0.3 MG/DL (0.2-1.0) Aspartate Amino Transf (AST/SGOT) 21 U/L (15-37) Alanine Aminotransferase (ALT/SGPT) 26 U/L (12-78) Alkaline Phosphatase 65 U/L (46-116) Troponin I 0.085 ng/mL (0.000-0.056) Total Protein 6.8 G/DL (6.4-8.2) Albumin 3.2 G/DL (3.4-5.0) L Globulin 3.6 g/dL Albumin/Globulin Ratio 0.9 (1.0-2.7) L Objective HEAD: Atraumatic and normocephalic, PERRLA, EOMI. NECK: No JVD, no carotid bruit. CHEST: Clear to auscultation. HEART: Normal S1, S2. Regular rate and rhythm, No murmurs, gallops or rubs. ABDOMEN: Soft. No organomegaly, + BS. MUSCULOSKELETAL: No edema, clubbing or cyanosis. NEUROLOGIC: Awake, alert, and oriented x3. Modesto Pedro MD Oct 22, 2018 19:16
--- NOTE | 2018-10-22 19:48 | NUR ---
HAND-OFF: Report given to Collin Tee. Pt. remain stable.
[2018-10-22] MEDS ORDERED: Atorvastatin 20mg tab ORAL SCH (21:00)
[2018-10-22] MEDS ORDERED: Aspirin EC 81mg tab ORAL SCH (21:00)
--- NOTE | 2018-10-22 22:15 | Consultation ---
DATE OF CONSULTATION: 10/21/2018 CARDIOLOGY CONSULTATION CONSULTING PHYSICIAN: Modesto Pedro M.D. REFERRING PHYSICIAN: Angelique Rogel M.D. REASON FOR CONSULTATION: Management of chest pain. HISTORY OF PRESENT ILLNESS: The patient is a very unfortunate 58-year-old gentleman, who was brought in by EMS after experiencing chest discomfort. The patient apparently had been off of all blood pressure medication. The chest pain is described as right-sided pain, which is worse with movements. At the time of arrival of the patient, the patient was found to have a blood pressure of 261/153 mmHg. The patient's cardiovascular history is significant for history of coronary artery disease, status post PCI. The patient's laboratory finding in the emergency department showed troponin of 0.045 with D-dimer of 0.031. Urine drug screen showed positive for marijuana. The patient was admitted to [facility] for further evaluation and management of accelerated hypertension as well as chest pain. PAST MEDICAL HISTORY: 1. History of CAD, status post stent placed PCI. 2. History of hypertension. 3. History of CVA. ALLERGIES: Nitroglycerin. PAST SURGICAL HISTORY: Angioplasty and stent placement. REVIEW OF SYSTEMS: A 12-system review done essentially negative except what was mentioned in history of present illness. MEDICATIONS: List of medication at home include lisinopril 20 mg p.o. daily. FAMILY HISTORY: No premature coronary artery disease in first-degree relatives. SOCIAL HISTORY: The patient currently smokes tobacco and marijuana. PHYSICAL EXAMINATION: VITAL SIGNS: Blood pressure is 261/153, respirations 16, pulse of 81, temperature 98.1 degrees Fahrenheit, and O2 saturation 98% on room air. GENERAL: The patient is a very unfortunate 58-year-old gentleman, in no apparent respiratory distress. Alert and oriented x4. HEENT: Atraumatic and normocephalic. Anicteric. Pupils are equal, round, and reactive to light and accommodation. Extraocular muscles are intact. NECK: JVP less than 5 cm. No carotid bruit. Carotid upstroke is 2+ bilaterally. CARDIOVASCULAR: Normal S1, S2. Regular rate and rhythm. No murmurs, gallops, or rubs. PMI is at fourth intercostal space at the midclavicular line. LUNGS: Clear to auscultation bilaterally. ABDOMEN: Soft, nontender, and nondistended. No hepatosplenomegaly. Positive bowel sounds. EXTREMITIES: No evidence of edema, clubbing, or cyanosis. LABORATORY FINDINGS: WBC of 8.2, hemoglobin of 15.7, hematocrit of 47.7, and platelet count of . The chemistry showed sodium of 141, potassium 4.0, chloride 107, bicarbonate 25, BUN of 16, creatinine 0.9, glucose 95, calcium is 9.3. Troponin I initially was 0.045. Lipid panel showed triglyceride 172, total cholesterol 238, LDL cholesterol is 156, and HDL of 55. INR was 1.2. IMAGING STUDIES: Including chest x-ray showed no acute cardiopulmonary disease. ASSESSMENT AND PLAN: The patient is a very unfortunate 58-year-old gentleman, seen in Cardiology consultation at request of Dr. Rogel. 1. Atypical chest pain. However in view of history of CAD and history of percutaneous coronary intervention, risk factors of hypertension and hypercholesterolemia, we will like to proceed with myocardial perfusion imaging study, which is scheduled for morning of October 22, 2018. 2. In the meantime, we will continue with aspirin 81 mg p.o. daily as well as optimization of atorvastatin to 40 mg daily. 3. Further therapeutic and diagnostic decision will be based on results of the nuclear stress test. The patient will have a 2D echocardiography done as well for assessment of LV systolic and diastolic function. 4. History of CVA. The patient will require to be on aspirin and statins. 5. History of CAD, status post PCI. 6. History of dyslipidemia. The patient's LDL goal should be less than 70. I would like to thank, Dr. Rogel, for allowing me to participate in the care of this patient. Modesto Pedro M.D. DR: INGRID JOB#: [id number] CC:
[2018-10-23] MEDS ORDERED: Aspirin EC 81mg tab ORAL SCH (09:00)
--- NOTE | 2018-10-24 12:38 | Discharge Summary ---
Discharge Summary Discharge Summary _ DATE OF ADMISSION: 10/21/2018 DATE OF DISCHARGE: 10/22/2018 DISCHARGED BY: Dr. Rogel REASON FOR ADMISSION: 58 years old male with past medical history of hypertension, coronary artery disease, status post PCI, history of CVA, presented with chest pain and feeling of heaviness in the anterior aspect of the chest wall associated with shortness of breath. Patient denied dizziness and lightheadedness. Patient denies cough. No nausea or vomiting. Upon evaluation blood pressure was significantly elevated 260/150. Pulse oximetry was stable on room air. Laboratory workup revealed no leukocytosis , stable hemoglobin and hematocrit. Troponin negative , EKG revealed left ventricular hypertrophy and sinus bradycardia . No acute ischemic changes. Urine toxicology screen was positive for marijuana. D-dimer within normal limits 0.31. Chest x-ray revealed no acute cardiopulmonary pathology. In emergency department patient was given IV hydralazine and clonidine. Patient was admitted for further management. 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 Cardiology consult was requested. Second troponin minimally elevated - 0.085. Lipid panel revealed mixed hyperlipidemia with elevated triglycerides 172, elevated total cholesterol 238 and elevated LDL 156. Patient was started on statin. Antiplatelet therapy was continued with Aspirin. Patient was educated on low-fat low cholesterol cardiac diet. Echocardiogram revealed preserved ejection fraction 55-60%. Moderate left ventricular hypertrophy. No evidence of wall motion abnormality. Patient subsequently undergone nuclear medicine myocardial perfusion stress test , which was negative but suboptimal. No definite reversible perfusion defects were identified, no definite fixed defects were identified . Calculated ejection fraction 63%. Per cardiology ,chest pain was atypical, likely due to uncontrolled blood pressure. Patient noted to have sinus bradycardia , asymptomatic, possibly athlete heart in view of left ventricular hypertrophy. SA and AV ale blockers were avoided. Blood pressure was managed with multiply regimen of antihypertensive medications, including URSULA inhibitor ,chlorthalidone and hydralazine on as needed basis. Prior to discharge blood pressure 142/74. TSH was within normal limits. Hemoglobin A1c 6.0. Patient will need close monitoring with primary care provider for further optimization of antihypertensive medication regimen. Patient was reminded on compliance with with medication regimen and cardiac low- fat low-cholesterol diet. Pain management was addressed as needed. DVT and GI prophylaxis provided. Supportive care provided. Patient clinically stabilized: no further chest pain, blood pressure stable. Patient was ready for discharge home. Due to rapid and unexpected improvement in patient condition, patient was discharged in 1 day. FINAL DIAGNOSES: Atypical chest pain likely due to hypertensive urgency - resolved Hypertensive urgency- resolved Hyperlipidemia Coronary artery disease , status post PCI History of CVA Asymptomatic sinus bradycardia, possible athlete heart ( in view of left ventricular hypertrophy) Marijuana user DISCHARGE MEDICATIONS: List of medication was sent with patient DISCHARGE INSTRUCTIONS: Patient was discharged home Follow up with primary care provider in one week. I have been assigned to dictate discharge summary for this account. I was not involved in the patient's management. Ember Frias NP Oct 24, 2018 12:38
== END 2018-10-22 20:45 | disposition home or self-care (01) | DRG 199 ==
LOC: EDBD 21:18 → EMR 21:31 → EDBEDREQ 23:25 → 2W 10-21 00:30 → EDBEDREQSVC 10-21 01:10 → EDBEDREQTM 10-21 01:10 → EDBEDREQ 10-21 01:10 → 2E 10-22 07:18
DX: I16.0 Hypertensive urgency (principal); E87.5 Hyperkalemia; R07.89 Other chest pain; I25.10 Atherosclerotic heart disease of native coronary artery without angina pectoris; E78.2 Mixed hyperlipidemia; F12.90 Cannabis use, unspecified, uncomplicated; R00.1 Bradycardia, unspecified; I10 Essential (primary) hypertension; R94.5 Abnormal results of liver function studies; Z98.61 Coronary angioplasty status; Z86.73 Personal history of transient ischemic attack (TIA), and cerebral infarction without residual deficits
CPT/HCPCS: 36415; 71045; 78452; 80048; 80053; 80061; 80307; 82550; 82553; 83036; 84443; 84484; 85025; 85379; 85610; 85730; 93005; 93017; 93306; 96374; 96375; 99285; J2785